=== PATIENT | male | born 1945 | race Caucasian/White ===

== ENCOUNTER 2020-01-21 17:19 | Emergency (ER) | payer OTHER ==
[~2020-01-21 17:19] MED LIST: 0.9% SODIUM CHLORIDE 1000 ML IV BAG IV ONE
[2020-01-21 17:55] LABS: EOSINOPHILS % (AUTO) 6.6 % (0.0-8.0); HEMATOCRIT 34.8 % (42-54); LYMPHOCYTES % (AUTO) 23.7 % (21.0-51.0); MEAN CORPUSCULAR HEMOGLOBIN 31.6 pg (27.0-33.0); MEAN CORPUSCULAR HGB CONC 33.9 g/dL (32.0-36.0); MONOCYTES % (AUTO) 9.4 % (3.0-13.0); NEUTROPHILS % (AUTO) 57.9 % (40.0-77.0); PLATELET COUNT (AUTO) 75 K/uL (130-400); RED BLOOD CELL COUNT(AUTO) 3.74 MIL/uL (4.50-6.20); RED CELL DISTRIBUTION WIDTH 14.6 % (11.0-15.5); WHITE BLOOD COUNT (AUTO) 4.6 K/uL (4.8-10.8)
[2020-01-21 18:09] LABS: INR 1.08 (0.85-1.15); PARTIAL THROMBOPLASTIN TIME 23.6 SEC (26.3-35.5); PROTHROMBIN TIME 11.6 SEC (9.6-11.6)
[2020-01-21 18:22] LABS: ALBUMIN 3.3 g/dL (3.5-5.0); BILIRUBIN,TOTAL 1.2 mg/dL (0.2-1.0); CREATININE 1.4 mg/dL (0.5-1.5); POTASSIUM 4.7 mmol/L (3.5-5.1); TOTAL PROTEIN, SERUM 7.5 g/dL (6.0-8.3)
[2020-01-21] MEDS ORDERED: INSULIN HUMULIN R 100 UNIT/ML 3ML ONE ×2 (18:29→20:09)
[2020-01-21 18:31] LABS: THYROID STIMULATING HORMONE 11.01 uIU/mL (0.36-3.74)
[2020-01-21 18:32] LABS: ALCOHOL, BLOOD < 3 mg/dL (0-10)
== END 2020-01-21 21:44 | disposition home or self-care (01) ==
LOC: EDH 17:19
DX: E11.65 Type 2 diabetes mellitus with hyperglycemia (principal); I10 Essential (primary) hypertension; E03.9 Hypothyroidism, unspecified; J44.9 Chronic obstructive pulmonary disease, unspecified; Z87.891 Personal history of nicotine dependence
CPT/HCPCS: 36415; 80053; 82010; 82550; 82948 ×3; 84443; 84484; 85025; 85610; 85730; 93005; 96361; 96374; 96376; 99284; G0480; J1815 ×2; J7030

== ENCOUNTER 2020-02-06 17:14 | Emergency (ER) | payer OTHER ==
[2020-02-06 18:30] LABS: BASOPHILS % (AUTO) 0.9 % (0.0-5.0); EOSINOPHILS % (AUTO) 5.7 % (0.0-8.0); HEMATOCRIT 33.7 % (42-54); LYMPHOCYTES % (AUTO) 17.6 % (21.0-51.0); MEAN CORPUSCULAR HGB CONC 32.9 g/dL (32.0-36.0); MEAN CORPUSCULAR VOLUME 94.1 fL (79-99); MONOCYTES % (AUTO) 9.5 % (3.0-13.0); NEUTROPHILS % (AUTO) 65.9 % (40.0-77.0); PLATELET COUNT (AUTO) 68 K/uL (130-400); RED BLOOD CELL COUNT(AUTO) 3.58 MIL/uL (4.50-6.20); RED CELL DISTRIBUTION WIDTH 15.5 % (11.0-15.5); WHITE BLOOD COUNT (AUTO) 5.5 K/uL (4.8-10.8)
[2020-02-06 18:41] LABS: CREATININE 1.1 mg/dL (0.5-1.5); POTASSIUM 4.1 mmol/L (3.5-5.1)
[2020-02-06] MEDS ORDERED: LIDOCAINE HCL 2% JELLY 5 ML ONE (19:32)
[2020-02-06 20:01] LABS: APPEARANCE,URINE Clear (CLEAR); BILIRUBIN,URINE Negative (NEGATIVE); COLOR,URINE Yellow (YELLOW); GLUCOSE, URINE (UA) 250 mg/dL (NEGATIVE); KETONES,URINE Negative (NEGATIVE); LEUKOCYTE ESTERASE ,URINE Negative (NEGATIVE); NITRATE,URINE Negative (NEGATIVE); OCCULT BLOOD,URINE Negative (NEGATIVE); PROTEIN,URINE Trace mg/dL (NEGATIVE)
[2020-02-06 20:11] LABS: BACTERIA,URINE Rare /HPF (None Seen); RBC,URINE None Seen /HPF (0-1); SQUAMOUS EPITHELIAL CELL,UR 0-2 /HPF (0-2); WBC,URINE 0-1 /HPF (0-1)
== END 2020-02-06 21:10 | disposition home or self-care (01) ==
LOC: EDH 17:14
DX: R33.9 Retention of urine, unspecified (principal); I10 Essential (primary) hypertension; R60.0 Localized edema; J44.9 Chronic obstructive pulmonary disease, unspecified; E11.9 Type 2 diabetes mellitus without complications; E03.9 Hypothyroidism, unspecified; Z98.890 Other specified postprocedural states
CPT/HCPCS: 36415; 51702; 80048; 81001; 85025

== ENCOUNTER 2020-02-10 21:29 | Inpatient (IN) | payer OTHER ==
[~2020-02-10] VITALS: Ht 172.7 cm; Wt 99.5 kg
[2020-02-10 22:39] LABS: BASOPHILS % (AUTO) 0.7 % (0.0-5.0); EOSINOPHILS % (AUTO) 5.6 % (0.0-8.0); HEMATOCRIT 32.4 % (42-54); LYMPHOCYTES % (AUTO) 12.2 % (21.0-51.0); MEAN CORPUSCULAR HEMOGLOBIN 31.1 pg (27.0-33.0); MEAN CORPUSCULAR VOLUME 94.2 fL (79-99); MONOCYTES % (AUTO) 8.1 % (3.0-13.0); NEUTROPHILS % (AUTO) 72.9 % (40.0-77.0); PLATELET COUNT (AUTO) 77 K/uL (130-400); RED BLOOD CELL COUNT(AUTO) 3.44 MIL/uL (4.50-6.20); RED CELL DISTRIBUTION WIDTH 15.7 % (11.0-15.5); WHITE BLOOD COUNT (AUTO) 5.9 K/uL (4.8-10.8)
[2020-02-10 22:54] LABS: ALBUMIN 2.8 g/dL (3.5-5.0); BILIRUBIN,TOTAL 0.8 mg/dL (0.2-1.0); CREATININE 1.4 mg/dL (0.5-1.5); POTASSIUM 4.4 mmol/L (3.5-5.1); TOTAL PROTEIN, SERUM 6.9 g/dL (6.0-8.3)
[2020-02-10 22:57] LABS: APPEARANCE,URINE Clear (CLEAR); BILIRUBIN,URINE Negative (NEGATIVE); COLOR,URINE Orange (YELLOW); GLUCOSE, URINE (UA) >=1000 mg/dL (NEGATIVE); KETONES,URINE Negative (NEGATIVE); LEUKOCYTE ESTERASE ,URINE Trace (NEGATIVE); NITRATE,URINE Negative (NEGATIVE); OCCULT BLOOD,URINE Large (NEGATIVE); PH,URINE 5.5 (5.0-8.0); PROTEIN,URINE Trace mg/dL (NEGATIVE); UROBILINOGEN,URINE 0.2 mg/dL (0.2-1.0)
[2020-02-10 23:23] LABS: BACTERIA,URINE None Seen /HPF (None Seen); RBC,URINE 51-100 /HPF (0-1); SQUAMOUS EPITHELIAL CELL,UR Rare /HPF (0-2); YEAST,URINE BUDDING Rare /HPF (None Seen)
[2020-02-10] MEDS ORDERED: CEFTRIAXONE SODIUM 1 GM ONE (23:42)
[2020-02-10] MEDS ORDERED: INSULIN HUMULIN R 100 UNIT/ML 3ML ONE (23:43)
[2020-02-11] MEDS ORDERED: GLUCAGON 1MG KIT 1 MG ML IM PRN (02:15)
[2020-02-11] MEDS ORDERED: ONDANSETRON HCL 4 MG/2 ML VIAL IV PRN (02:15)
[2020-02-11] MEDS ORDERED: DEXTROSE 50%-WATER 50 ML DISP.SYRIN IV PRN (02:15)
[2020-02-11] MEDS ORDERED: ACETAMINOPHEN 325 MG TAB PO PRN ×2 (02:15)
[2020-02-11 05:40] LABS: BASOPHILS % (AUTO) 0.7 % (0.0-5.0); EOSINOPHILS % (AUTO) 6.6 % (0.0-8.0); HEMATOCRIT 30.9 % (42-54); LYMPHOCYTES % (AUTO) 18.7 % (21.0-51.0); MEAN CORPUSCULAR HGB CONC 32.7 g/dL (32.0-36.0); MEAN CORPUSCULAR VOLUME 94.8 fL (79-99); MONOCYTES % (AUTO) 8.6 % (3.0-13.0); NEUTROPHILS % (AUTO) 64.7 % (40.0-77.0); PLATELET COUNT (AUTO) 77 K/uL (130-400); RED BLOOD CELL COUNT(AUTO) 3.26 MIL/uL (4.50-6.20); RED CELL DISTRIBUTION WIDTH 15.7 % (11.0-15.5); WHITE BLOOD COUNT (AUTO) 5.6 K/uL (4.8-10.8)
[2020-02-11 05:55] LABS: ALBUMIN 2.6 g/dL (3.5-5.0); BILIRUBIN,TOTAL 0.6 mg/dL (0.2-1.0); CREATININE 1.1 mg/dL (0.5-1.5); CRP QUANTITATIVE 111.3 mg/L (0.00-9.0); POTASSIUM 4.4 mmol/L (3.5-5.1); TOTAL PROTEIN, SERUM 6.6 g/dL (6.0-8.3)
[2020-02-11 06:08] LABS: HEMOGLOBIN A1C 11.7 % (4.0-6.0)
[2020-02-11] MEDS: INSULIN HUMULIN R 100 UNIT/ML 3ML SQ SCH ×4 (07:30→22:43)
[2020-02-11] MEDS ORDERED: SODIUM CHLORIDE 0.9% 1000ML 1,000 ML IV ONE (07:35)
[2020-02-11] MEDS ORDERED: INSULIN HUMULIN R 100 UNIT/ML 3ML ONE (07:36)
[2020-02-11] MEDS ORDERED: FAMOTIDINE/PF 20 MG/2 ML VIAL IV ONE (07:36)
[2020-02-11] MEDS: FAMOTIDINE/PF 20 MG/2 ML VIAL IV SCH ×2 (09:00→22:34)
[2020-02-11 11:23] VITALS: BP 153/88
[2020-02-11] MEDS: CEFTRIAXONE SODIUM 1 GM IVP SCH ×2 (12:40→22:34)
[2020-02-11 15:25] VITALS: BP 142/64
[2020-02-11] MEDS: SODIUM CHLORIDE 0.9% 1000ML 1,000 ML IV SCH ×2 (16:42→23:45)
[2020-02-11 19:32] VITALS: BP 135/61
[2020-02-11 23:28] VITALS: BP 144/61
[2020-02-12 03:33] VITALS: BP 158/65
[2020-02-12 07:00] VITALS: BP 140/71
[2020-02-12] MEDS: INSULIN HUMULIN R 100 UNIT/ML 3ML SQ SCH ×4 (07:32→23:10)
[2020-02-12] MEDS: CEFTRIAXONE SODIUM 1 GM IVP SCH ×2 (09:21→20:45)
[2020-02-12] MEDS: FAMOTIDINE/PF 20 MG/2 ML VIAL IV SCH ×2 (09:38→20:48)
[2020-02-12 11:00] VITALS: BP 189/68
--- NOTE | 2020-02-12 12:48 | NUR ---
FLP CM spoke to pt's spouse Madeline Castillo discussed dc plans. Pt is independent prior to admission, lives at home w/spouse. Spouse verbalized she has a walker that pt can use if needed. Denies any other equipments/services. Feels safe to go back home, still drives, spouse able to assist with transportation and needs as necessary. DC plan to home once stable. CM to cont to follow up. Addendum: 02/12/20 at 1250 by IZAIAH KING LVN CM Amended: Links added.
--- NOTE | 2020-02-12 15:29 | NUR ---
NUTRITION EDUCATION SARABJIT provided Diabetes Nutrition Education to Pt. Pt admits does not desire to follow nutrition recommendations. SARABJIT discussed food alternatives to Pt's usual diet and emphasized importance of Carbohydrate counting. Pt states nutrition handout will be useful to . Pt follows "no-added salt" diet at home. Addendum: 02/12/20 at [address] Amended: Links added.
[2020-02-12 16:00] VITALS: BP 155/64
[2020-02-12 19:46] VITALS: BP 157/62
[2020-02-12] MEDS: INSULIN GLARGINE 100 UNITS/ML 10 ML VIAL SQ SCH (23:10)
[2020-02-12] MEDS: METOPROLOL TARTRATE 25 MG TAB PO SCH (23:11)
[2020-02-12 23:38] VITALS: BP 143/52
[2020-02-13 03:07] VITALS: BP 108/75
[2020-02-13 04:20] LABS: BASOPHILS % (AUTO) 1.1 % (0.0-5.0); HEMATOCRIT 34.4 % (42-54); LYMPHOCYTES % (AUTO) 22.5 % (21.0-51.0); MEAN CORPUSCULAR HEMOGLOBIN 30.5 pg (27.0-33.0); MEAN CORPUSCULAR HGB CONC 33.1 g/dL (32.0-36.0); MONOCYTES % (AUTO) 7.9 % (3.0-13.0); NEUTROPHILS % (AUTO) 60.3 % (40.0-77.0); PLATELET COUNT (AUTO) 87 K/uL (130-400); RED BLOOD CELL COUNT(AUTO) 3.74 MIL/uL (4.50-6.20); RED CELL DISTRIBUTION WIDTH 15.7 % (11.0-15.5); WHITE BLOOD COUNT (AUTO) 5.7 K/uL (4.8-10.8)
[2020-02-13 04:47] LABS: MAGNESIUM 1.4 mg/dL (1.80-2.40); PHOSPHORUS 2.6 mg/dL (2.5-4.9); POTASSIUM 3.4 mmol/L (3.5-5.1)
[2020-02-13] MEDS ORDERED: POTASSIUM CHLORIDE 10% ELIXIR 20 MEQ/15 ML UDCUP PO PRN (05:45)
[2020-02-13] MEDS ORDERED: POTASSIUM CHLORIDE 20MEQ/100ML 100 ML IV PRN (05:45)
[2020-02-13] MEDS ORDERED: MAGNESIUM 2GM PREMIX 50ML 50 ML IV SCH (05:45)
[2020-02-13] MEDS ORDERED: POTASSIUM CHLORIDE 20 MEQ ERTAB PO PRN (05:45)
[2020-02-13] MEDS ORDERED: LIDOCAINE HCL-MPF 1% 2ML VIAL IJ PRN (05:45)
[2020-02-13] MEDS: INSULIN HUMULIN R 100 UNIT/ML 3ML SQ SCH ×4 (06:41→20:58)
[2020-02-13 08:00] VITALS: BP 123/77
[2020-02-13] MEDS ORDERED: POTASSIUM CHLORIDE 20 MEQ ERTAB PO SCH (08:45)
[2020-02-13] MEDS: METOPROLOL TARTRATE 25 MG TAB PO SCH ×2 (09:14→20:55)
[2020-02-13] MEDS: FAMOTIDINE/PF 20 MG/2 ML VIAL IV SCH ×2 (09:14→21:48)
[2020-02-13] MEDS: DOXAZOSIN MESYLATE 2 MG TABLET PO SCH (09:14)
[2020-02-13] MEDS: METFORMIN HCL 500 MG TABLET PO SCH ×3 (09:14→17:18)
[2020-02-13] MEDS: CEFTRIAXONE SODIUM 1 GM IVP SCH ×2 (09:14→21:49)
[2020-02-13] MEDS: FLUCONAZOLE 200 MG/NS 100 ML 100 ML IV SCH (09:24)
[2020-02-13 12:00] VITALS: BP 108/65
[2020-02-13 16:00] VITALS: BP 154/61
--- NOTE | 2020-02-13 16:33 | NUR ---
CM NOTE/NOT APPROPRIATE FOR PT SNF NEW ORDER FOR REHAB. PT NOTES REVIEWED, PATIENT AMBULATION BY SELF. INFORMATION GIVEN TO MARLENE RIOS. PATIENT TO DCP HOME WHEN MEDICALLY CLEARED.
[2020-02-13 19:30] VITALS: BP 117/51
[2020-02-13] MEDS: TAMSULOSIN HCL 0.4 MG CAP.ER.24H PO SCH (20:55)
[2020-02-13] MEDS: INSULIN GLARGINE 100 UNITS/ML 10 ML VIAL SQ SCH (20:56)
[2020-02-14 01:51] VITALS: BP 119/54
[2020-02-14 04:23] VITALS: BP 111/55
[2020-02-14 05:21] LABS: BASOPHILS % (AUTO) 0.9 % (0.0-5.0); EOSINOPHILS % (AUTO) 6.3 % (0.0-8.0); LYMPHOCYTES % (AUTO) 25.9 % (21.0-51.0); MEAN CORPUSCULAR HEMOGLOBIN 30.9 pg (27.0-33.0); MEAN CORPUSCULAR HGB CONC 32.9 g/dL (32.0-36.0); MEAN CORPUSCULAR VOLUME 93.9 fL (79-99); MONOCYTES % (AUTO) 7.6 % (3.0-13.0); NEUTROPHILS % (AUTO) 58.6 % (40.0-77.0); PLATELET COUNT (AUTO) 76 K/uL (130-400); WHITE BLOOD COUNT (AUTO) 4.6 K/uL (4.8-10.8)
[2020-02-14] MEDS: INSULIN HUMULIN R 100 UNIT/ML 3ML SQ SCH ×4 (05:28→21:15)
[2020-02-14 05:42] LABS: CREATININE 1.1 mg/dL (0.5-1.5); POTASSIUM 4.1 mmol/L (3.5-5.1)
[2020-02-14 08:00] VITALS: BP 122/53
[2020-02-14] MEDS: METOPROLOL TARTRATE 25 MG TAB PO SCH ×2 (08:35→21:12)
[2020-02-14] MEDS: CEFTRIAXONE SODIUM 1 GM IVP SCH ×2 (08:35→21:10)
[2020-02-14] MEDS: FLUCONAZOLE 200 MG/NS 100 ML 100 ML IV SCH (08:36)
[2020-02-14] MEDS: METFORMIN HCL 500 MG TABLET PO SCH ×3 (08:36→17:15)
[2020-02-14] MEDS: DOXAZOSIN MESYLATE 2 MG TABLET PO SCH (08:36)
[2020-02-14] MEDS: FAMOTIDINE/PF 20 MG/2 ML VIAL IV SCH ×2 (08:36→21:11)
[2020-02-14 12:00] VITALS: BP 113/55
[2020-02-14 16:00] VITALS: BP 150/79
--- NOTE | 2020-02-14 16:37 | NUR ---
SPOKE AT LENGTH WITH PATIENTS THIS MORNING- SHE WANTED UPDATE STATES IF PATIENT DOES NEED IV ABX, WILL TAKE TO [facility]. NO SNF. PLUS PT IS AMBULATORY. PASSED TO EXPERIENTIAL THERAPIST, STATES PLAN IS BLADDER TRAINING, RODRIGUEZ OUT IN AM, PO ABX/PO DIFLUCAN UPDATED SPOUSE
[2020-02-14 19:04] VITALS: BP 105/43
[2020-02-14] MEDS: TAMSULOSIN HCL 0.4 MG CAP.ER.24H PO SCH (21:12)
[2020-02-14] MEDS: INSULIN GLARGINE 100 UNITS/ML 10 ML VIAL SQ SCH (21:17)
[2020-02-15 00:41] VITALS: BP 127/55
[2020-02-15 04:40] VITALS: BP 137/54
[2020-02-15 05:22] LABS: BASOPHILS % (AUTO) 1.3 % (0.0-5.0); EOSINOPHILS % (AUTO) 6.9 % (0.0-8.0); HEMATOCRIT 30.3 % (42-54); LYMPHOCYTES % (AUTO) 26.9 % (21.0-51.0); MEAN CORPUSCULAR HEMOGLOBIN 30.4 pg (27.0-33.0); MEAN CORPUSCULAR HGB CONC 32.7 g/dL (32.0-36.0); MEAN CORPUSCULAR VOLUME 92.9 fL (79-99); MONOCYTES % (AUTO) 8.2 % (3.0-13.0); NEUTROPHILS % (AUTO) 56.3 % (40.0-77.0); PLATELET COUNT (AUTO) 70 K/uL (130-400); RED BLOOD CELL COUNT(AUTO) 3.26 MIL/uL (4.50-6.20); WHITE BLOOD COUNT (AUTO) 4.5 K/uL (4.8-10.8)
[2020-02-15 05:29] LABS: POTASSIUM 3.8 mmol/L (3.5-5.1)
[2020-02-15] MEDS: INSULIN HUMULIN R 100 UNIT/ML 3ML SQ SCH ×2 (05:29→11:30)
--- NOTE | 2020-02-15 07:00 | NUR ---
BLADDER TRAINING Pt slept early last night, wilson catheter connected to a leg bag. Went ahead and started the bladder training after he woke up at 0500. Wilson catheter connected to the wilson drainage bag with a clamp. Explained the plan of care at the pt's level of understanding. Pt needs a lot of reorientation of what's going, continues to be confused but less impulsive. Denies any need to void at this time, 2 hrs after the wilson was clamped, will continue to monitor.
[2020-02-15] MEDS: METFORMIN HCL 500 MG TABLET PO SCH ×3 (09:11→17:43)
[2020-02-15] MEDS: DOXAZOSIN MESYLATE 2 MG TABLET PO SCH (09:11)
[2020-02-15] MEDS: METOPROLOL TARTRATE 25 MG TAB PO SCH (09:11)
[2020-02-15] MEDS: FLUCONAZOLE 200 MG/NS 100 ML 100 ML IV SCH (09:12)
[2020-02-15] MEDS: FAMOTIDINE/PF 20 MG/2 ML VIAL IV SCH (09:12)
[2020-02-15] MEDS: CEFTRIAXONE SODIUM 1 GM IVP SCH (09:12)
--- NOTE | 2020-02-15 09:23 | NUR ---
PER MD ORDER REMOVED RODRIGUEZ CATHETER 16F, TIP INTACT. PT TOLERATED WELL. DUE TO VOID, WILL CONTINUE TO MONITOR.
[2020-02-15] MEDS ORDERED: METO25 PO (10:00)
[2020-02-15] MEDS ORDERED: FLUC100T8 PO (10:00)
[2020-02-15] MEDS ORDERED: METF-444 PO (10:00)
[2020-02-15] MEDS ORDERED: TAMS-1 PO (10:00)
--- NOTE | 2020-02-15 10:30 | NUR ---
PT VOIDED 200ML IN URINAL.
--- NOTE | 2020-02-15 18:25 | NUR ---
PER MD ORDERS DISCHARGE INSTRUCTIONS GIVEN TO PT AND SPOUSE, RONY MCKEON. INSTRUCTED TO FOLLOW UP WITH PCP. AND TO SEE A UROLOGIST RECOMMENDED/ORDERED BY MD. REVIEWED MEDICATIONS, STATED THEY HAD NO QUESTIONS AND WOULD CHILD CUSTODY EVALUATOR PRESCRIPTIONS ON SUNDAY. STATED THEY WOULD CHECK WITH THE [facility] FOR UROLOGIST ON SUNDAY. TELE REMOVED,,IV REMOVED, TIP INTACT.
== END 2020-02-15 18:15 | disposition home or self-care (01) | DRG 872 ==
LOC: EDH 21:29 → INTOOBSV 02-11 02:11 → EDHIP 02-11 02:11 → OBSVTOIN 02-11 02:11 → 4BH 02-11 10:30 → 4DH 02-12 07:40 → 3DH 02-13 00:25
PROVIDERS: ADMIT Internal Medicine; ATTEND Internal Medicine
DX: A41.9 Sepsis, unspecified organism (principal); N39.0 Urinary tract infection, site not specified; R33.9 Retention of urine, unspecified; M10.9 Gout, unspecified; J44.9 Chronic obstructive pulmonary disease, unspecified; E11.9 Type 2 diabetes mellitus without complications; E03.9 Hypothyroidism, unspecified; K70.30 Alcoholic cirrhosis of liver without ascites; R31.0 Gross hematuria; B37.9 Candidiasis, unspecified; I10 Essential (primary) hypertension; Z20.828 Contact with and (suspected) exposure to other viral communicable diseases; Z87.891 Personal history of nicotine dependence
CPT/HCPCS: 36415; 71045; 76770; 80048; 80053; 81001; 82728; 82948; 83036; 83605; 83615; 83735; 84100; 84145; 85025; 86140; 87040; 87088; G0378; G0480; J0696; J1450; J1815; J3490; J7030